=== PATIENT | female | born 1990 | race Two or more races ===

== ENCOUNTER 2016-08-20 22:22 | Outpatient (CLI) | payer SELFPAY ==
[~2016-08-20] VITALS: Ht 162.6 cm; Wt 63.0 kg
== END 2016-08-21 00:05 | disposition home or self-care (01) ==
LOC: LDOP 22:22
PROVIDERS: ATTEND Obstetrics & Gynecology
DX: O26.893 Other specified pregnancy related conditions, third trimester (principal); R10.9 Unspecified abdominal pain; O23.13 Infections of bladder in pregnancy, third trimester; R30.0 Dysuria; Z3A.30 30 weeks gestation of pregnancy
CPT/HCPCS: 59025; 81001; 87086; 99211; G0463

== ENCOUNTER 2016-10-09 16:03 | Outpatient (CLI) | payer OTHER ==
[2016-10-09 17:27] LABS: DAU SCREEN DISCLAIMER
[2016-10-09] MEDS ORDERED: PREN1TAB60 PO (17:28)
[2016-10-09 17:40] VITALS: BP 99/55
== END 2016-10-09 18:05 | disposition home or self-care (01) ==
LOC: LDOP 16:03
PROVIDERS: ATTEND Student in an Organized Health Care Education/Training Program
DX: O26.893 Other specified pregnancy related conditions, third trimester (principal); R10.9 Unspecified abdominal pain; R42 Dizziness and giddiness; O62.9 Abnormality of forces of labor, unspecified; Z3A.37 37 weeks gestation of pregnancy
CPT/HCPCS: 59025; 80307; 81001; 87081; 87086; 99201; G0463

== ENCOUNTER 2016-10-18 09:25 | Outpatient (CLI) | payer OTHER ==
[~2016-10-18] VITALS: Ht 162.6 cm; Wt 64.5 kg
[~2016-10-18 09:25] MED LIST: PREN1TAB60 PO
[2016-10-18 09:40] VITALS: BP 102/68
[2016-10-18 10:24] LABS: DAU SCREEN DISCLAIMER
== END 2016-10-18 10:29 | disposition home or self-care (01) ==
LOC: LDOP 09:25
PROVIDERS: ATTEND Obstetrics & Gynecology
DX: O26.893 Other specified pregnancy related conditions, third trimester (principal); O62.9 Abnormality of forces of labor, unspecified; R10.9 Unspecified abdominal pain; Z3A.39 39 weeks gestation of pregnancy
CPT/HCPCS: 59025; 80307; 99211; G0463

== ENCOUNTER 2016-10-18 20:44 | Inpatient (IN) | payer OTHER ==
[2016-10-18 20:30] VITALS: BP 118/79
[2016-10-18] MEDS ORDERED: LACTATED RINGERS 1,000 ML IV SCH (20:49)
[2016-10-18] MEDS ORDERED: OXYTOCIN 30U/ 0.9% NaCL 500ML 500 ML IV ONE (20:49)
[2016-10-18] MEDS ORDERED: NEWBORN KIT ONE (20:54)
[2016-10-18] MEDS ORDERED: FENTANYL PF 100 MCG/2ML ONE ×2 (20:54→21:54)
[2016-10-18] MEDS ORDERED: OXYTOCIN 30U/ 0.9% NaCL 500ML 500 ML ONE ×2 (20:55→21:03)
[2016-10-18] MEDS: FENTANYL PF 100 MCG/2ML IVPush PRN ×2 (20:58→21:56)
[2016-10-18] MEDS ORDERED: FENTANYL PF 100 MCG/2ML IV PRN (21:00)
[2016-10-18] MEDS ORDERED: ONDANSETRON 2MG/ML, 2ML IVPush PRN (21:00)
[2016-10-18] MEDS ORDERED: LIDOCAINE 1%, 20ML ONE (21:03)
[2016-10-18] MEDS ORDERED: MISOPROSTOL 200 MCG TABLET ONE (21:03)
[2016-10-18] MEDS: PLEASE ENTER HEIGHT AND WEIGHT MC SCH (21:30)
[2016-10-18 21:34] LABS: DAU SCREEN DISCLAIMER
[2016-10-18] MEDS ORDERED: HYDROcodone/APAP 5/325 TABLET ONE (22:59)
[2016-10-18] MEDS ORDERED: IBUPROFEN 600 MG TABLET ONE (23:00)
[2016-10-18] MEDS: OXYTOCIN 30U/ 0.9% NaCL 500ML 500 ML IV SCH (23:01)
[2016-10-18] MEDS: IBUPROFEN 600 MG TABLET PO PRN (23:05)
[2016-10-18] MEDS: HYDROcodone/APAP 5/325 TABLET PO PRN (23:05)
[2016-10-18] MEDS ORDERED: ONDANSETRON 2MG/ML, 2ML IV PRN (23:30)
[2016-10-18] MEDS ORDERED: MISOPROSTOL 200 MCG TABLET PR PRN (23:30)
[2016-10-18] MEDS ORDERED: HYDROcodone/APAP 5/325 TABLET PO PRN (23:30)
[2016-10-18] MEDS ORDERED: CALCIUM CARBONATE 500 MG TAB.CHEW PO PRN (23:30)
[2016-10-19 00:45] VITALS: BP 95/59
[2016-10-19 04:30] VITALS: BP 102/56
[2016-10-19] MEDS: IBUPROFEN 600 MG TABLET PO PRN ×2 (04:39→15:57)
[2016-10-19] MEDS: HYDROcodone/APAP 5/325 TABLET PO PRN ×3 (04:39→15:57)
[2016-10-19] MEDS: PLEASE ENTER HEIGHT AND WEIGHT MC SCH ×3 (05:30→21:30)
[2016-10-19 07:00] VITALS: BP 92/57
[2016-10-19] MEDS: OXYTOCIN 30U/ 0.9% NaCL 500ML 500 ML IV SCH ×2 (09:01→19:01)
[2016-10-19] MEDS: DOCUSATE 100 MG CAPSULE PO PRN (09:14)
[2016-10-19] MEDS: PRENATAL VIT/IRON/FA 1 EACH TABLET PO SCH (09:14)
[2016-10-19] MEDS: FERROUS GLUCONATE 324 MG TABLET PO SCH (13:42)
[2016-10-19 15:45] VITALS: BP 99/63
[2016-10-19 19:05] VITALS: BP 100/58
[2016-10-20] MEDS: HYDROcodone/APAP 5/325 TABLET PO PRN ×3 (01:33→14:43)
[2016-10-20] MEDS: IBUPROFEN 600 MG TABLET PO PRN ×3 (01:33→14:43)
[2016-10-20] MEDS: OXYTOCIN 30U/ 0.9% NaCL 500ML 500 ML IV SCH (05:01)
[2016-10-20] MEDS: PLEASE ENTER HEIGHT AND WEIGHT MC SCH (05:30)
[2016-10-20] MEDS: DOCUSATE 100 MG CAPSULE PO PRN (07:44)
[2016-10-20] MEDS: PRENATAL VIT/IRON/FA 1 EACH TABLET PO SCH (07:44)
[2016-10-20] MEDS: FERROUS GLUCONATE 324 MG TABLET PO SCH (07:45)
[2016-10-20 08:00] VITALS: BP 115/67
[2016-10-20] MEDS ORDERED: IBUP-1222 PO (12:25)
[2016-10-20] MEDS ORDERED: DOCU-30 PO (12:35)
[2016-10-20] MEDS ORDERED: FERR325T23 PO (12:35)
[2016-10-20] MEDS ORDERED: HYDR-3240 PO (12:38)
== END 2016-10-20 15:34 | disposition home or self-care (01) | DRG 775 ==
LOC: LDIP 20:44 → 2NW 10-19 00:31
PROVIDERS: ADMIT Obstetrics & Gynecology; ATTEND Obstetrics & Gynecology
PROC: 10E0XZZ Delivery of Products of Conception, External Approach (ICD-10-PCS; principal; 2016-10-18)
PROC: 10907ZC Drainage of Amniotic Fluid, Therapeutic from Products of Conception, Via Natural or Artificial Opening (ICD-10-PCS; 2016-10-18)
PROC: 0HQ9XZZ Repair Perineum Skin, External Approach (ICD-10-PCS; 2016-10-18)
DX: O76 Abnormality in fetal heart rate and rhythm complicating labor and delivery (principal); Z37.0 Single live birth; Z3A.38 38 weeks gestation of pregnancy; O62.3 Precipitate labor; R51 Headache; O70.0 First degree perineal laceration during delivery; O90.81 Anemia of the puerperium; D64.9 Anemia, unspecified
CPT/HCPCS: 36415; 80307; 85025; 86850; 86900; J3010; J7120